=== PATIENT | female | born 1975 | race Caucasian/White ===

== ENCOUNTER 2022-04-22 07:41 | Outpatient (CLI) | payer OTHER, SELFPAY ==
--- NOTE | 2022-04-22 07:52 | MM_ITS ---
WS: [id number] SCREENING DIGITAL BREAST TOMOSYNTHESIS MAMMOGRAM WITH CAD HISTORY: SCREENING COMPARISON: 03/10/2018 Bilateral CC and MLO with tomosynthesis and synthetic mammography submitted. Computer aided detection analyzed. Breast composition: The breasts are heterogeneously dense, which may obscure small masses. Areas of a rchitectural distortion noted on the RIGHT MLO projection posteriorly and just above the nipple line. Not definitely seen on the CC projection. The LEFT breast is negative. MM/[place] [id number] IMPRESSION: BI-RADS: 0-Incomplete: Need additional imaging evaluation FOLLOW UP: Need Additional Imaging RIGHT breast: Spot compression views (posterior central CC and MLO). Exaggerate d lateral CC. True ML. Ultrasound to follow if abnormality persists.
== END 2022-04-22 07:42 | disposition home or self-care (01) ==
PROVIDERS: Visit Provider Nurse Practitioner Family
DX: Z12.31 Encounter for screening mammogram for malignant neoplasm of breast (principal)
CPT/HCPCS: 77063; 77067

== ENCOUNTER 2022-05-20 07:15 | Outpatient (CLI) | payer OTHER, SELFPAY ==
--- NOTE | 2022-05-20 07:19 | MM_ITS ---
WS: [id number] Right breast diagnostic 3D tomosynthesis digital mammogram, 05/20/2022 Clinical Data: ABNORMAL MAMMO Comparison: 04/22/2022, 03/10/2018. Findings: A right CC, right MLO spot and right ML views of the breast was obtained. There is a scar marker on t he right breast. No spiculated masses or clustered calcifications were seen. There were areas in the posterior right breast which showed some fibrotic strands but there has been no change in the last 4 years. No spiculated masses or clustered calcifications are seen. There are no secondary signs of car cinoma. MM/[place] [id number] Impression: 1. Probable scarring from prior right breast biopsy. 2. Right breast ultrasound will be performed. BIRADS: 2-Benign FOLLOW UP: Need Additional Imaging The CAD engineering drawings checker was used.
--- NOTE | 2022-05-20 07:19 | US_ITS ---
WS: [id number] Right breast ultrasound, 05/20/2022 Clinical Data: ABNORMAL MAMMO Comparison: Right breast ultrasound, 03/10/2018. Findings: The upper outer quadrant of the right breast showed only normal breast tissue. There were no spiculat ed masses or cysts. US/US breast RT limited* [id number] Impression: 1. Normal right breast ultrasound. 2. Return to annual screening mammograms. BIRADS: 2-Benign FOLLOW UP: 1 Year Follow-up
== END 2022-05-20 07:16 | disposition home or self-care (01) ==
LOC: RAD 07:16
PROVIDERS: Visit Provider Nurse Practitioner Family
DX: R92.8 Other abnormal and inconclusive findings on diagnostic imaging of breast (principal)
CPT/HCPCS: 76642; 77061

== ENCOUNTER 2025-01-22 08:30 | Outpatient (CLI) | payer OTHER, SELFPAY ==
--- NOTE | 2025-01-22 08:40 | MM_ITS ---
WS: [id number] BILATERAL 3D TOMOSYNTHESIS DIGITAL SCREENING MAMMOGRAM WITH CAD CLINICAL INFORMATION: SCREENING HISTORY: Screening mammogram. No current complaints. COMPARISON: 2021 TECHNIQUE: Bilateral CC and MLO. FINDINGS: The breast are composed of extremely dense tissue, which can limit the detection of small underlying mass lesions. No suspicious focal mass, asymmetry, calcifications, or architectural distortion. No evidence of malignancy. MM/MM scr tomosynthesis [id number] IMPRESSION: DENSITY: The breasts are extremely dense, which lowers the sensitivity of mammo graphy. BI-RADS: 1 - Negative FOLLOW UP: 1 Year Follow-up Recommend return to annual screening mammography.
== END 2025-01-22 08:31 | disposition home or self-care (01) ==
LOC: MOBLMAM 08:32
PROVIDERS: PCP Nurse Practitioner Family; Visit Provider Nurse Practitioner Family
DX: Z12.31 Encounter for screening mammogram for malignant neoplasm of breast (principal); R92.343 Mammographic extreme density, bilateral breasts
CPT/HCPCS: 77063; 77067